=== PATIENT | male | born 1960 | race Caucasian/White ===

== ENCOUNTER 2016-12-19 13:49 | Emergency (ER) | payer OTHER ==
[~2016-12-19] VITALS: Ht 175.3 cm; Wt 64.9 kg
[2016-12-19 13:58] VITALS: Ht 175.3 cm; Wt 64.9 kg
[2016-12-19] MEDS ORDERED: HYDROmorphone INJ 1 MG/ML SYR IV STA ×2 (14:31→16:44)
[2016-12-19] MEDS ORDERED: ONDANSETRON INJ 2 MG/ML 2 ML VIAL IV STA (14:31)
--- NOTE | 2016-12-19 14:31 | EMERGENCY ROOM VISIT NOTE ---
History Report prepared by Magui: Lamin Hernandez Under the Supervision of: Dr. Rajeev Muse M.D. First contact with patient: 14:18 Chief Complaint: ABNORMAL DIAGNOSTIC TESTING Stated Complaint: LEG PAIN, ABNORMAL EKG, BURNING PAIN IN CHEST History of Present Illness The patient is a 56 year old male who presents to the Emergency Room with complaints of episodes of burning chest pain that started 2 nights ago. He says that 2 nights ago, he had a 15 minute episode of burning chest pain that went away on its own. He states that he then had another episode last night, and another one this morning. The patient denies any radiation of pain. He notes that it did not hurt when he breathed, and was sleeping when the pain came on overnight. The patient states that he was seen at his doctor prior to arrival, and had an abnormal EKG, and was sent here. He adds that around 4 years ago, he started having tingling in both his feet, and then hair started falling off his feet, legs, and toes. The patient adds that he then started having constant pain in his feet, and then he started having really bad right leg pain. He notes that recently, he started having the pain on the left leg as well. The patient adds that recently, he had sudden right kidney pain that went away quickly. He denies any fevers, chills, abdominal pain, recent cough, urinary symptoms, or weight loss. He also denies any recent strain or injury. The patient states that he has not been belching or burping. He adds that he has a history of pancreatic issues, and had a stent put in his pancreas multiple years ago. He still has nausea from the surgery. He denies any personal history of heart problems, but does have extensive family history of it. He says that he takes Aspirin daily. He has no history of blood clots. He is an ex-alcoholic , and is a current smoker. Source of History: patient, spouse/significant other Onset: 2 nights ago Position: chest Symptom Intensity: episodes last around 15 minutes Quality: burning Timing: other (episodes) Associated Symptoms: No fevers, No chills, No cough, No abdominal pain, No urinary symptoms Note: Associated symptoms: 4 years ago started having tingling in both feet. Now reports bilateral leg pain and foot pain. Denies weight loss. Review of Systems See HPI for pertinent positives & negatives. A total of 10 systems reviewed and were otherwise negative. Past Medical & Surgical Medical Problems: (1) Disease of pancreas Surgical Problems: (1) History of pancreatic surgery Social History Problems: (1) Alcohol abuse Old medical records were reviewed. Nurse's notes were reviewed and I agree with. Family History Diabetes mellitus FH: heart disease FH: lung disease FHx: cancer Hypertension Kidney disease Seizures Social History Smoking Status: Current Every Day Smoker Alcohol Use: none, other (ex alcoholic) Marital Status: Housing Status: lives with family Occupation Status: disabled Current/Historical Medications Scheduled Ergocalciferol (Vitamin D 70225 Unit), 1 TAB PO WK Esomeprazole Magnesium (Nexium), 40 MG PO DAILY Oxycodone HCl (Oxycodone Hydrochloride), 15 MG PO TID Oxycodone/Acetaminophen 10MG/325MG (Percocet 10MG/325MG), 1 TAB PO TID Pancrelipase (Lipase-Protease- (Creon 49859), 36,000 INTER.UNIT PO TID Primidone (Primidone), 150 MG PO QAM Primidone (Mysoline), 200 MG PO QPM Propranolol (Inderal), 80 MG PO BID Scheduled PRN Alprazolam (Xanax), 0.5 MG PO Q6H PRN for Anxiety Cyclobenzaprine Hcl (Flexeril), 5 MG PO Q8 PRN for Muscle Spasms Ondansetron Hcl (Zofran), 8 MG PO Q8 PRN for Nausea Allergies Coded Allergies: Adhesives (Unverified Allergy, Unknown, HIVES, 12/19/16) FENTANYL PATCH, ETC Atorvastatin (Unverified Allergy, Unknown, FLU LIKE SYMPTOMS, 12/19/16) CI Pigment Blue 63 (Unverified Allergy, Unknown, FLU- LIKE SYMPTOMS, ) Duloxetine (Unverified Allergy, Unknown, FLU- LIKE SYMPTOMS, 12/19/16) Iodinated Diagnostic Agents (Unverified Allergy, Unknown, HIVES, 12/19/16) THE OLD IVP DYE Lisinopril (Unverified Allergy, Unknown, FLU LIKE SYMPTOMS, 12/19/16) Naproxen (Unverified Allergy, Unknown, FLU LIKE, 12/19/16) Pregabalin (Unverified Allergy, Unknown, FLU LIKE, 12/19/16) Physical Exam Vital Signs Date Time Temp Pulse Resp B/P (MAP) Pulse Ox O2 Delivery O2 Flow Rate FiO2 12/19/16 18:34 36.7 79 16 138/91 100 12/19/16 17:54 79 138/91 100 Room Air 12/19/16 16:47 81 164/97 100 Room Air 12/19/16 14:44 84 16 171/129 99 Room Air 12/19/16 13:58 36.7 87 18 157/103 100 Room Air Physical Exam General: Well developed well nourished non ill-appearing middle aged male in no acute distress, breathing comfortably on room air. Normal speech HEENT: Normal cephalic atraumatic. Pupils are equal round and reactive to light. Extraocular movements are intact. Oropharynx is pink with moist mucous membranes. No swelling of the mouth lips or tongue. Neck: Supple with a midline trachea. No meningeal signs or stiffness, no JVD or bruits. No Stridor. Chest: Clear to auscultation bilaterally. No wheezes or rhonchi. No increased work of breathing. Heart: regular rate and rhythm. Abdomen: Soft nontender, nondistended without rebound guarding or rigidity. Extremities: Calves are mildly tender bilaterally. No redness or warmth. Bounding distal pulses. Spine/Back. Non tender to palpation. No CVA tenderness Skin: Good turgor without rashes. Neurologic exam: Cranial nerves two through 12 are intact. Motor and sensation are intact and symmetrical throughout. Medical Decision & Procedures ER Provider Diagnostic Interpretation: Radiology results as stated below per my review and radiologist interpretation: SINGLE VIEW CHEST CLINICAL HISTORY: Atypical chest pain. FINDINGS: An AP, portable, upright chest radiograph is obtained. No prior studies are available for comparison at the time of dictation. The examination is degraded by portable technique and patient rotation. The cardiomediastinal silhouette is unremarkable. The lungs and pleural spaces are clear. No pneumothorax is seen. There are healed right-sided rib fractures. IMPRESSION: No acute cardiopulmonary abnormality. Electronically signed by: Parker Jarquin M.D. 12/19/16 2:58 PM Dictated Date/Time: 12/19/2016 2:57PM VENOUS DOPPLER LW EXT BILAT HISTORY: Pain. Edema. eval for DVT COMPARISON STUDY: None. FINDINGS: There is normal compressibility, flow, and augmentation within the bilateral lower extremity deep venous systems. IMPRESSION: No DVT within the right or left lower extremity. The above report was generated using voice recognition software. It may contain grammatical, syntax or spelling errors. Electronically signed by: Wilian Dave M.D. 12/19/2016 4:43 PM Dictated Date/Time: 12/19/2016 4:42 PM Laboratory Results 12/19/16 14:56 Red Blood Count 4.43, Mean Corpuscular Volume 97.3, Mean Corpuscular Hemoglobin 33.0, Mean Corpuscular Hemoglobin Concent 33.9, Mean Platelet Volume 11.2, Neutrophils (%) (Auto) 72.6, Lymphocytes (%) (Auto) 21.0, Monocytes (%) (Auto) 3.7, Eosinophils (%) (Auto) 2.0, Basophils (%) (Auto) 0.6, Neutrophils # (Auto) 6.21, Lymphocytes # (Auto) 1.80, Monocytes # (Auto) 0.32, Eosinophils # (Auto) 0.17, Basophils # (Auto) 0.05 12/19/16 14:56 Test 12/19/16 14:56 White Blood Count 8.56 K/uL (4.8-10.8) Red Blood Count 4.43 M/uL (4.7-6.1) Hemoglobin 14.6 g/dL (14.0-18.0) Hematocrit 43.1 % (42-52) Mean Corpuscular Volume 97.3 fL (80-100) Mean Corpuscular Hemoglobin 33.0 pg (25-34) Mean Corpuscular Hemoglobin Concent 33.9 g/dl (32-36) Platelet Count 202 K/uL (130-400) Mean Platelet Volume 11.2 fL (7.4-10.4) Neutrophils (%) (Auto) 72.6 % Lymphocytes (%) (Auto) 21.0 % Monocytes (%) (Auto) 3.7 % Eosinophils (%) (Auto) 2.0 % Basophils (%) (Auto) 0.6 % Neutrophils # (Auto) 6.21 K/uL (1.4-6.5) Lymphocytes # (Auto) 1.80 K/uL (1.2-3.4) Monocytes # (Auto) 0.32 K/uL (0.11-0.59) Eosinophils # (Auto) 0.17 K/uL (0-0.5) Basophils # (Auto) 0.05 K/uL (0-0.2) RDW Standard Deviation 47.7 fL (36.4-46.3) RDW Coefficient of Variation 13.4 % (11.5-14.5) Immature Granulocyte % (Auto) 0.1 % Immature Granulocyte # (Auto) 0.01 K/uL (0.00-0.02) Prothrombin Time 10.2 SECONDS (9.0-12.0) Prothromb Time International Ratio 1.0 (0.9-1.1) Activated Partial Thromboplast Time 25.4 SECONDS (21.0-31.0) Partial Thromboplastin Ratio 1.0 D-Dimer 200 ug/L FEU (0-500) Anion Gap 5.0 mmol/L (3-11) Est Creatinine Clear Calc Drug Dose 81.6 ml/min Estimated GFR () 104.8 Estimated GFR (Non- 90.4 BUN/Creatinine Ratio 9.5 (10-20) Calcium Level 9.3 mg/dl (8.5-10.1) Total Bilirubin 0.3 mg/dl (0.2-1) Direct Bilirubin < 0.1 mg/dl (0-0.2) Aspartate Amino Transf (AST/SGOT) 17 U/L (15-37) Alanine Aminotransferase (ALT/SGPT) 19 U/L (12-78) Alkaline Phosphatase 111 U/L (45-117) Total Creatine Kinase 92 U/L (39-308) Creatine Kinase MB 1.0 ng/ml (0.5-3.6) Creatine Kinase MB Ratio 1.1 (0-3.0) Total Protein 7.7 gm/dl (6.4-8.2) Albumin 4.3 gm/dl (3.4-5.0) Lipase 85 U/L (73-393) Thyroid Stimulating Hormone (TSH) 0.492 uIu/ml (0.300-4.500) Laboratory studies as stated above per my review. Medications Administered Medications (Trade) Dose Ordered Sig/Letitia Route Start Time Stop Time Status Last Admin Dose Admin Ondansetron HCl (Zofran Inj) 4 mg NOW STAT IV 12/19/16 14:31 12/19/16 14:34 DC 12/19/16 14:45 4 MG Hydromorphone HCl (Dilaudid Inj) 1 mg NOW STAT IV 12/19/16 14:31 12/19/16 14:34 DC 12/19/16 14:46 1 MG Hydromorphone HCl (Dilaudid Inj) 1 mg NOW STAT IV 12/19/16 16:44 12/19/16 16:46 DC 12/19/16 16:45 1 MG ECG Indication: chest pain Rate (beats per minute): 78 Rhythm: normal sinus Findings: LAFB, no acute ischemic change, other (nonspecific T-wave abnormalities) Change: no significant change (compared to ECG done in office earlier today) Change: ECG done in office prior to arrival: Normal sinus rhythm rate of 91 bpm, nonspecific T-wave abnormalities, LAFB, no old. ED Course 1418: Past medical records reviewed. The patient was evaluated in room A11A, and a complete history and physical examination were performed. 1431: Ordered Dilaudid Inj 1 mg IV, Zofran Inj 4 mg IV. 1533: I reevaluated the patient and he is comfortable. 1632: I reevaluated the patient and he is over at ultrasound. 1753: I reevaluated the patient and he was urinating. 1823: Upon reevaluation, the patient is resting. I discussed the results and treatment plan with him. He verbalized agreement of the treatment plan. The patient was discharged home. Medical Decision Differentials include but are not limited to: DVT/PE, cardiac disease, anemia, electrolyte or metabolic abnormality, infection. This patient comes in as described above. He was placed in room A 11. He is here for treatment and evaluation of leg pain. He also had a brief episode of chest pain /burning. He is asymptomatic at present in regards to chest pain. Legs are tender bilaterally but not red or warm. He has bounding distal pulses and no evidence of arterial or vascular compromise. He is neurologically neurovascular intact.. His vital signs are stable. His EKG does not show any ischemic changes and no left anterior fascicular block. IV access established, EKG was obtained as well as multiple blood testing. I also order ultrasounds of both of his legs to rule out DVT. There is no evidence of DVT. EKG does not show any definite ischemic changes his cardiac biomarkers are not elevated CK and CK-MB are normal and there is nothing is here for rhabdo. He has no acute electrolyte or metabolic abnormalities. His d-dimer is within normal limits which would go against a DVT/ PE. His chest x-ray is unremarkable. The patient did receive IV Dilaudid twice while in the ER and is feeling better. He does have chronic pain medication home . I will discharge him home he will follow-up with his regular doctor this may more musculoskeletal. He will return if: increasing pain, worsening of symptoms, any new problems or concerns. Medication Reconcilliation Current Medication List: was personally reviewed by me Blood Pressure Screening Patient's blood pressure: Elevated blood pressure Blood pressure disposition: Referred to PCP Impression Primary Impression: Bilateral leg pain Additional Impression: Chest pain Scribe Attestation The scribe's documentation has been prepared under my direction and personally reviewed by me in its entirety. I confirm that the note above accurately reflects all work, treatment, procedures, and medical decision making performed by me. Departure Information Dispostion Home / Self-Care Referrals Becky Stockton M.D. (PCP) Forms HOME CARE DOCUMENTATION FORM, IMPORTANT VISIT INFORMATION, WORK / SCHOOL INSTRUCTIONS Patient Instructions My [facility] Additional Instructions Rest Drink plenty of fluids REturn if: worsening of symptoms, fever, chest pain, increasing pain or problems , any new problems or concerns Continue use your pain medications. May use [id number] ibuprofen if needed. Take with food Follow-up with your doctor this week for recheck Problem Qualifiers
[2016-12-19 15:10] LABS: BASO % 0.6 %; BASO ABS # 0.05 K/uL (0-0.2); COMPLETE YES; HEMATOCRIT 43.1 % (42-52); IG% 0.1 %; MEAN CELL VOLUME 97.3 fL (80-100); MEAN CORPUSCULAR HGB CONC 33.9 g/dl (32-36); MEAN PLATELET VOLUME 11.2 fL (7.4-10.4); MONO % 3.7 %; NEUT % 72.6 %; PLATELET COUNT 202 K/uL (130-400); RED BLOOD COUNT 4.43 M/uL (4.7-6.1); WHITE BLOOD COUNT 8.56 K/uL (4.8-10.8)
[2016-12-19] MEDS ORDERED: MYS50 PO (15:32)
[2016-12-19] MEDS ORDERED: ERGO1CAP41 PO (15:32)
[2016-12-19] MEDS ORDERED: OXYC5CAP69 PO (15:32)
[2016-12-19] MEDS ORDERED: ONDA8TAB6 PO (15:32)
[2016-12-19] MEDS ORDERED: PANC1200 PO (15:32)
[2016-12-19] MEDS ORDERED: NXM/40 PO (15:32)
[2016-12-19] MEDS ORDERED: PRIM50TA29 PO (15:32)
[2016-12-19] MEDS ORDERED: CYCL5TAB PO (15:32)
[2016-12-19] MEDS ORDERED: PROP80TA2 PO (15:32)
[2016-12-19] MEDS ORDERED: ALPR-411 PO (15:32)
[2016-12-19] MEDS ORDERED: OXYC-106 PO (15:32)
[2016-12-19 15:33] LABS: PROTHROMBIN TIME (PATIENT) 10.2 SECONDS (9.0-12.0)
[2016-12-19 15:36] LABS: BUN/CREATININE RATIO 9.5 (10-20); CALCIUM 9.3 mg/dl (8.5-10.1); CREATININE 0.95 mg/dl (0.60-1.40); POTASSIUM 4.4 mmol/L (3.5-5.1)
[2016-12-19 15:46] LABS: ALKALINE PHOSPHATASE 111 U/L (45-117); ALT/SGPT 19 U/L (12-78); AST/SGOT 17 U/L (15-37); CKMB/CK RATIO 1.1 (0-3.0); THYROID STIMULATING HORMONE 0.492 uIu/ml (0.300-4.500)
--- NOTE | 2016-12-19 15:59 | DIAGNOSTIC IMAGING REPORT ---
SINGLE VIEW CHEST CLINICAL HISTORY: Atypical chest pain. FINDINGS: An AP, portable, upright chest radiograph is obtained. No prior studies are available for comparison at the time of dictation. The examination is degraded by portable technique and patient rotation. The cardiomediastinal silhouette is unremarkable. The lungs and pleural spaces are clear. No pneumothorax is seen. There are healed right-sided rib fractures. IMPRESSION: No acute cardiopulmonary abnormality. Electronically signed by: Parker Jarquin M.D. 12/19/2016 2:58 PM Dictated Date/Time: 12/19/2016 2:57 PM
--- NOTE | 2016-12-19 16:44 | DIAGNOSTIC IMAGING REPORT ---
VENOUS DOPPLER LW EXT BILAT HISTORY: Pain. Edema. eval for DVT COMPARISON STUDY: None. FINDINGS: There is normal compressibility, flow, and augmentation within the bilateral lower extremity deep venous systems. IMPRESSION: No DVT within the right or left lower extremity. The above report was generated using voice recognition software. It may contain grammatical, syntax or spelling errors. Electronically signed by: Wilian Dave M.D. 12/19/2016 4:43 PM Dictated Date/Time: 12/19/2016 4:42 PM
[2016-12-19 18:34] VITALS: BP 138/91; PULSE 79; TEMP 36.7; O2SAT 100
== END 2016-12-19 18:34 | disposition home or self-care (01) ==
LOC: C.EDB 13:51 → C.EDA 18:34
DX: M79.604 Pain in right leg (principal); M79.605 Pain in left leg; R07.9 Chest pain, unspecified; F17.200 Nicotine dependence, unspecified, uncomplicated; Z98.890 Other specified postprocedural states; Z83.3 Family history of diabetes mellitus; Z82.49 Family history of ischemic heart disease and other diseases of the circulatory system; Z82.0 Family history of epilepsy and other diseases of the nervous system; Z79.82 Long term (current) use of aspirin

== ENCOUNTER → 2017-01-17 | Outpatient (CLI) | payer OTHER ==
[~2017-01-17] MED LIST: ALPR-411 PO; CYCL5TAB PO; ERGO1CAP41 PO; MYS50 PO; NXM/40 PO; ONDA8TAB6 PO; OPTIRAY 320 IV PRN; OXYC-106 PO; OXYC5CAP69 PO; PANC1200 PO; PRIM50TA29 PO; PROP80TA2 PO
--- NOTE | 2017-01-17 11:39 | DIAGNOSTIC IMAGING REPORT ---
ADDENDUM Please see the corrected technique below: TECHNIQUE: Multidetector CT imaging of the lumbar spine was performed after the administration of intravenous contrast. IV contrast: 93 mL of Optiray 320. A dose lowering technique was used consistent with the principles of ALARA (as low as reasonably achievable). Electronically signed by: Nolan Villanueva M.D. 01/17/2017 2:43 PM Dictated Date/Time: 01/17/2017 2:42 PM ORIGINAL REPORT LUMBAR SPINE WITH CLINICAL HISTORY: 56 years-old Male presenting with history of lumbar surgery, now with new pain. TECHNIQUE: Multidetector CT of the lumbar spine was performed without the use of intravenous contrast. IV contrast: None. A dose lowering technique was used consistent with the principles of ALARA (as low as reasonably achievable). COMPARISON: None. CT DOSE (mGy.cm): The estimated cumulative dose is 644.45 mGy.cm. FINDINGS: Sr Account Executive topogram: Posterior lumbar fusion hardware noted. Normal lumbar lordosis. Postsurgical changes of bilateral transpedicular screw and richard fixation of L4-5 with laminectomy defects and interbody spacer. Osseous fusion is noted across these levels on the right facets and vertebral body. No hardware complication. Nonoperative levels demonstrate minimal anterior vertebral body height loss of L2. Mild osteopenia may be present. Remaining vertebral bodies demonstrate normal height and alignment. No acute fracture or subluxation. Disc bulges suggested at L2-3 and L3-4. In combination with ligamentum flavum thickening, this results in the greatest degree of spinal stenosis at L3-4. No significant neural foraminal narrowing is apparent. Paraspinal soft tissues remarkable for atherosclerosis of the normal caliber abdominal aorta. No paraspinal fat stranding or fluid collection. Postcontrast imaging of the operative levels mildly degraded by artifact. IMPRESSION: Expected postsurgical changes status post L4-5 posterior fusion with osseous fusion. No evidence of abscess or hardware complication. Focal spinal stenosis at L3-4 secondary to disc bulge and ligamentum flavum thickening. This would be better evaluated with MRI. Electronically signed by: Nolan Villanueva M.D. 01/17/2017 11:38 AM Dictated Date/Time: 01/17/2017 11:33 AM
== END | disposition home or self-care (01) ==
LOC: C.CTS 09:46
PROVIDERS: ATTEND Nurse Practitioner
DX: G89.29 Other chronic pain (principal); M54.16 Radiculopathy, lumbar region; M48.061 Spinal stenosis, lumbar region without neurogenic claudication; M51.26 Other intervertebral disc displacement, lumbar region; Z98.890 Other specified postprocedural states; Z98.1 Arthrodesis status

== ENCOUNTER → 2017-02-01 | Outpatient (CLI) | payer OTHER ==
[~2017-02-01] MED LIST changes: -OPTIRAY 320 IV PRN; +REGADENOSON 0.4 MG/5 ML SYR ONE
--- NOTE | 2017-02-01 19:47 | Myocardial Perfusion Study ---
Myocardial Perfusion Study Rpt Myocardial Perfusion Study Rpt Date of Service 02/01/2017 Myocardial Perfusion Study Rpt Procedure: 1. Myocardial perfusion study performed in multiple views/images 2. Lexiscan pharmacologic stress ECG Indications: 1. Chest pain 2. Abnormal ECG 3. Nondiagnostic stress echo Consent: Informed written consent was obtained prior to the procedure. Ordering physician: Dr. Crespo Procedural details: For the stress portion of the study, Lexiscan 0.4 mg was intravenously administered followed by a saline flush. This was followed by 32.8 mCi of technetium 99m Cardiolite, injected at 11:30 a.m. on 02/01/2017. 30 minutes following the injection, imaging of the heart was performed in multiple projections. For the rest portion of the study, 10.1 mCi technetium 99m Cardiolite was injected intravenously at 9:45 a.m. on 02/01/2017. 1 hour following the injection, imaging of the heart was performed in the same projections. Lexiscan stress ECG: Resting ECG demonstrated: NSR at 70 bpm. Maximum heart rate: 94 bpm Resting blood pressure: 117/79 mmHg Maximum blood pressure: 134/78 mmHg Maximal, age-predicted heart rate: 56 % Significant ST changes: None Arrhythmia: None Symptoms: Mild chest burning Findings: Rotating raw imaging demonstrated no significant lung uptake. There was mild motion artifact in the stress images. Heart size appeared normal. Myocardial perfusion demonstrated a small area of mildly reduced uptake in the inferoseptal wall from base to distal left ventricle, which was fixed in post stress and rest imaging. With normal wall motion, this likely represents diaphragmatic attenuation artifact. There was no significant reversible defect to suggest ischemia. Ejection fraction: 58 % Wall motion: Normal No significant transient ischemic dilation. Impression: 1. Negative Lexiscan myocardial perfusion study for ischemia. 2. No significant infarct suggested. 3. Normal wall motion and LV systolic function. EF 58%. 4. Lexiscan induced chest burning. 5. Nondiagnostic Lexiscan ECG.
== END | disposition home or self-care (01) ==
LOC: C.NUCL 09:01
PROVIDERS: ATTEND Internal Medicine Cardiovascular Disease
DX: R94.31 Abnormal electrocardiogram [ECG] [EKG] (principal); I10 Essential (primary) hypertension